=== PATIENT | female | born 1980 | race Caucasian/White ===

== ENCOUNTER 2022-03-23 18:18 | Emergency (ER) | payer BC, OTHER ==
[2022-03-23 18:31] VITALS: BP 110/83; PULSE 108; RESP 18; TEMP 99.2; BMI 30.9
[2022-03-23] MEDS ORDERED: SILVER SULFADIAZINE 1% TOP CREAM 50 GM JAR TP ONE ×2 (19:53→20:33)
[2022-03-23] MEDS ORDERED: DIPHTH,PERTUSS(ACELL),TET 0.5 ML DISP.SYRIN IM ONE ×2 (20:37→20:45)
[2022-03-23] MEDS ORDERED: BACITRACIN 15 GM TUBE TOPICAL OINTMENT TP ONE (21:10)
[2022-03-23] MEDS ORDERED: BACITRACIN 0.9 GM PACKET ONE (21:24)
== END 2022-03-23 21:59 | disposition home or self-care (01) ==
LOC: JER 18:18
PROC: 3E0234Z Introduction of Serum, Toxoid and Vaccine into Muscle, Percutaneous Approach (ICD-10-PCS; principal; 2022-03-23)
DX: T20.20XA Burn of second degree of head, face, and neck, unspecified site, initial encounter (principal); X19.XXXA Contact with other heat and hot substances, initial encounter
CPT/HCPCS: 90471; 90715; 99283-25

== ENCOUNTER 2022-07-31 08:56 | Day surgery (SDC) | payer OTHER ==
[2022-07-31 09:35] VITALS: BMI 29.5
[2022-07-31] MEDS ORDERED: CEFAZOLIN 2 GM in DEXTROSE 5%-WATER - 100 ML IVPB ONE (10:34)
[2022-07-31] MEDS ORDERED: ACETAMINOPHEN INJECTION 100 ML IVPB ONE (11:23)
[2022-07-31] MEDS ORDERED: MIDAZOLAM HCL 2 MG/2 ML SINGLE DOSE VIAL ONE (11:38)
[2022-07-31] MEDS ORDERED: ROCURONIUM BROMIDE 50 MG/5 ML SYRINGE ONE (11:40)
[2022-07-31] MEDS ORDERED: ceFAZolin SODIUM 1 GM VIAL IVPB ONE (11:45)
[2022-07-31] MEDS ORDERED: ALBUMIN HUMAN 5% 250 ML IV SOLUTION IV ONE ×2 (12:00→12:10)
[2022-07-31] MEDS ORDERED: BENZOIN/ALOE VERA/STORAX/TOLU 58 ML BOTTLE ONE (13:36)
[2022-07-31] MEDS ORDERED: BENZOIN/ALOE VERA/STORAX/TOLU 58 ML BOTTLE TP ONE (13:39)
[2022-07-31] MEDS ORDERED: HYDROmorphone *PCA* 10MG/50ML DISP.SYRIN PCA SCH (14:15)
[2022-07-31] MEDS ORDERED: ONDANSETRON 4 MG/2 ML VIAL IVPUSH PRN (15:02)
[2022-07-31] MEDS ORDERED: HYDROmorphone *PCA* 10MG/50ML DISP.SYRIN ONE (15:22)
[2022-07-31] MEDS: LACTATED RINGERS SOLUTION 1,000 ML IV SCH (16:00)
[2022-07-31] MEDS: CEFAZOLIN SODIUM 2 GM in DEXTROSE 5%-WATER 100 ML IVPB SCH (17:16)
[2022-07-31] MEDS ORDERED: diphenhydrAMINE HCL 25 MG CAPSULE (FP) PO PRN (19:33)
[2022-08-01] MEDS: LACTATED RINGERS SOLUTION 1,000 ML IV SCH ×2 (01:28→10:05)
[2022-08-01] MEDS: CEFAZOLIN SODIUM 2 GM in DEXTROSE 5%-WATER 100 ML IVPB SCH (01:29)
[2022-08-01] MEDS ORDERED: oxyCODONE HCL 5 MG TABLET PO PRN (13:06)
[2022-08-01] MEDS: ACETAMINOPHEN 500 MG TABLET (FP) PO PRN ×2 (13:20→22:30)
[2022-08-01 14:59] LABS: BASO % 0.3 % (0-2.0); EOS % 0.2 % (0-4.5); HEMATOCRIT 37.1 % (32.4-45.2); HEMOGLOBIN 12.5 GM/dL (10.7-15.3); LYMPH % 8.4 % (8-40); MCHC 33.7 g/dl (32.0-36.0); MEAN PLT VOLUME 8.8 fl (7.5-11.1); MONO % 8.9 % (3.8-10.2); NEUT % 82.2 % (42.8-82.8); PLATELET COUNT 292 10^3/uL (134-434); RBC 4.46 M/mm3 (3.60-5.2); RDW 14.1 % (11.6-15.6); WHITE BLOOD COUNT 16.8 K/mm3 (4.0-10.0)
[2022-08-01 15:20] LABS: ALBUMIN 3.5 g/dl (3.4-5.0); BLOOD UREA NITROGEN 7.8 mg/dL (7-18); CALCIUM 9.1 mg/dL (8.5-10.1)
[2022-08-01 15:23] LABS: CREATININE 0.8 mg/dL (0.55-1.3)
[2022-08-01 15:25] LABS: BILIRUBIN,TOTAL 0.9 mg/dL (0.2-1); TOT PROT 6.8 g/dl (6.4-8.2)
[2022-08-01] MEDS: IBUPROFEN 600 MG TABLET (FP) PO PRN (17:11)
[2022-08-01] MEDS ORDERED: traZODone HCL 50 MG TABLET (FP) PO PRN (20:24)
[2022-08-02] MEDS: IBUPROFEN 600 MG TABLET (FP) PO PRN ×2 (05:53→09:44)
[2022-08-02 10:50] VITALS: BP 134/84; PULSE 110; RESP 16; TEMP 97.8
== END 2022-08-02 11:10 | disposition home or self-care (01) ==
LOC: UNDOADMIN 08:56 → JASUSAT 08:56 → J2C 08:56 → EDSTATUS 12:00 → J3W 16:15 → JASUSAT 08-02 11:10
PROVIDERS: ATTEND Obstetrics & Gynecology
PROC: 0UT70ZZ Resection of Bilateral Fallopian Tubes, Open Approach (ICD-10-PCS; 2022-07-31)
PROC: 0UT90ZL Resection of Uterus, Supracervical, Open Approach (ICD-10-PCS; principal; 2022-07-31 12:00)
DX: N94.6 Dysmenorrhea, unspecified (principal); D25.9 Leiomyoma of uterus, unspecified
CPT/HCPCS: 36415; 80053; 81025; 85025; 86850; 86900; 86901; 88302-TC; 88307-TC; 94760; C9803-CS; U0003; U0005